=== PATIENT | male | born 1980 | race Caucasian/White ===

== ENCOUNTER 2021-12-27 13:50 | Emergency (ER) | payer MEDICAID ==
[2021-12-27 14:54] LABS: ESTIMATED GFR 109 mL/min (>60)
== END 2021-12-27 14:58 | disposition home or self-care (01) ==
LOC: JP.ED 13:50
DX: Z88.0 Allergy status to penicillin (principal)
CPT/HCPCS: 36415; 80053; 80305-QW; 85025; 99284